=== PATIENT | male | born 1995 | race Caucasian/White ===

== ENCOUNTER 2021-09-20 03:21 | Inpatient (IN) | payer OTHER ==
[~2021-09-20] VITALS: Ht 182.9 cm; Wt 109.0 kg
[2021-09-20] MEDS ORDERED: MORPHINE SULFATE 4 MG/ML SYR/VIAL IV ONE (03:45)
[2021-09-20] MEDS ORDERED: PROCHLORPERAZINE EDISYLATE 5 MG/ML 2ML VIAL IV ONE (03:45)
[2021-09-20] MEDS ORDERED: SODIUM CHLORIDE 0.9% 1,000 ML IVB ONE (03:45)
[2021-09-20] MEDS ORDERED: PANTOPRAZOLE 40 MG/10 ML VIAL INJ IV ONE ×2 (03:45→18:15)
[2021-09-20 04:00] LABS: Basophils # (auto) 0 10 ^3/uL (0-0.2); Basophils % (auto) 0.6 % (0.0-2.0); Eosinophils # (auto) 0.1 10 ^3/uL (0-0.8); Eosinophils % (auto) 0.8 % (0.0-7.0); Hematocrit 40.4 % (41.0-53.0); Hemoglobin 13.3 g/dL (13.5-17.5); Lymphocytes # (auto) 1.5 10 ^3/uL (0.4-5.4); Lymphocytes % (auto) 22.2 % (10.0-50.0); Mean Corpuscular Hemoglobin 28.7 pg (28.0-32.0); Mean Corpuscular Hgb Conc. 32.9 g/dL (32.0-36.0); Mean Corpuscular Volume 87.2 fL (80.0-100.0); Monocytes # (auto) 0.7 10 ^3/uL (0-1.3); Monocytes % (auto) 10.7 % (0.0-12.0); Neutrophils # (auto) 4.4 10 ^3/uL (1.6-8.6); Neutrophils % (auto) 65.7 % (37.0-80.0); Nucleated Red Blood Cells % 0.1 %; Red Blood Cells 4.63 10^6/uL (4.5-5.90); Red Cell Distribution Width 13.7 % (11.8-14.3); White Blood Cell 6.6 10^3/uL (4.4-10.8)
[2021-09-20 04:19] LABS: Albumin 2.8 g/dL (3.4-5.0); Amylase 64 U/L (25-115); Anion Gap 6 (5-15); Blood Alcohol < 3.0 mg/dL (0-5); Blood Urea Nitrogen 13 mg/dL (7-18); Calcium 8.1 mg/dL (8.5-10.1); Carbon Dioxide 26 mmol/L (21-32); Chloride 108 mmol/L (98-107); Glucose 107 mg/dL (74-106); Lipase 520 U/L (73-393); Potassium 3.8 mmol/L (3.5-5.1); Sodium 140 mmol/L (136-145)
[2021-09-20 04:22] LABS: Alanine Aminotransferase 24 U/L (16-61); Alkaline Phosphatase 70 U/L (45-117); Aspartate Aminotransferase 11 U/L (15-37); BUN/Creatinine Ratio 22.4; Bilirubin, Total 0.2 mg/dL (0.2-1.0); GFR African American 221 mL/min; GFR Non-African American 183 mL/min
[2021-09-20 10:24] LABS: Urine WBC None Seen /hpf (0 - 3)
[2021-09-20 11:04] LABS: Alcohol, Urine < 3.0 mg/dL (0-10); Amphetamine Screen, Urine POSITIVE (NEGATIVE); Barbiturate Scree,Urine NEGATIVE (NEGATIVE); Benzodiazephine Screen, Urine NEGATIVE (NEGATIVE); Cannabinoid Screen, Urine POSITIVE (NEGATIVE); Cocaine Screen, Urine NEGATIVE (NEGATIVE); Opiate Scree,Urine POSITIVE (NEGATIVE); Phencyclidine Screen, Urine NEGATIVE (NEGATIVE)
[2021-09-20 11:10] LABS: Urine Bacteria NONE SEEN /hpf (None Seen); Urine Blood Negative /uL (Negative); Urine Mucus MODERATE (None Seen); Urine Specific Gravity 1.015 (1.001-1.035)
[2021-09-20] MEDS ORDERED: MORPHINE SULFATE INJECTION 2 MG/ML SYRG IV PRN ×3 (14:30→18:15)
[2021-09-20] MEDS ORDERED: NITROGLYCERIN 0.4 MG SL TAB SL PRN ×2 (14:30→18:15)
[2021-09-20] MEDS ORDERED: MORPHINE SULFATE INJECTION 2 MG/ML SYRG IV ONE (17:30)
[2021-09-20] MEDS ORDERED: ACETAMINOPHEN 325 MG TAB PO PRN (18:15)
[2021-09-20] MEDS ORDERED: ALUM & MAG HYDROX-SIMETH LIQ(MAALOX) 30 ML PO PRN (18:15)
[2021-09-20] MEDS ORDERED: LORazepam 2MG/ML-1ML VIAL IV PRN (18:15)
[2021-09-20] MEDS ORDERED: LORazepam 0.5 MG TAB PO PRN (18:15)
[2021-09-20] MEDS ORDERED: cefTRIAXone 1GM/50ML D5W 50 ML IV ONE (18:15)
[2021-09-20] MEDS ORDERED: HYDROcodone-ACET 5/325MG TAB PO PRN (18:15)
[2021-09-20] MEDS ORDERED: ONDANSETRON HCL 4 MG/2 ML VIAL IV PRN (18:15)
[2021-09-20] MEDS: SODIUM CHLORIDE 0.9% 1,000 ML IV SCH ×2 (18:44→21:07)
[2021-09-20 19:01] LABS: Cholesterol 127 mg/dL (< 200); HDL Cholesterol 27 mg/dL (40-59); LDL Cholesterol 83 mg/dL (< 100); Triglycerides 82 mg/dL (< 150)
[2021-09-20] MEDS ORDERED: metroNIDAZOLE 500MG/100ML 100 ML IV ONE (20:00)
[2021-09-20 22:30] VITALS: BP 128/83
[2021-09-21 05:00] VITALS: BP 104/65
[2021-09-21 07:05] LABS: Basophils # (auto) 0 10 ^3/uL (0-0.2); Basophils % (auto) 0.2 % (0.0-2.0); Eosinophils # (auto) 0 10 ^3/uL (0-0.8); Eosinophils % (auto) 0.8 % (0.0-7.0); Hematocrit 39.3 % (41.0-53.0); Hemoglobin 13.2 g/dL (13.5-17.5); Lymphocytes % (auto) 16.1 % (10.0-50.0); Mean Corpuscular Hemoglobin 28.9 pg (28.0-32.0); Mean Corpuscular Hgb Conc. 33.5 g/dL (32.0-36.0); Mean Corpuscular Volume 86.2 fL (80.0-100.0); Monocytes # (auto) 0.4 10 ^3/uL (0-1.3); Neutrophils # (auto) 4.8 10 ^3/uL (1.6-8.6); Neutrophils % (auto) 75.9 % (37.0-80.0); Nucleated Red Blood Cells % 0.1 %; Red Blood Cells 4.56 10^6/uL (4.5-5.90); Red Cell Distribution Width 13.8 % (11.8-14.3); White Blood Cell 6.3 10^3/uL (4.4-10.8)
[2021-09-21 07:21] LABS: INR 1.05 (0.9-1.15); Partial Thromboplastin Time 31.2 sec (23.6-33.0)
[2021-09-21 07:24] LABS: Potassium 3.5 mmol/L (3.5-5.1)
[2021-09-21 07:38] LABS: Albumin 2.6 g/dL (3.4-5.0); BUN/Creatinine Ratio 10.3; Bilirubin, Total 0.3 mg/dL (0.2-1.0); Calcium 7.9 mg/dL (8.5-10.1); Phosphorus 3.4 mg/dL (2.5-4.90); Total Protein 6.1 g/dL (6.4-8.2); Uric Acid 5.6 mg/dL (3.5-7.2)
[2021-09-21 09:00] VITALS: BP 114/70
[2021-09-21] MEDS ORDERED: cefTRIAXone 1GM/50ML D5W 50 ML IV SCH (09:00)
[2021-09-21] MEDS ORDERED: ENOXAPARIN SOD 40 MG/0.4 ML SYRINGE SC SCH (10:00)
[2021-09-21] MEDS ORDERED: PANTOPRAZOLE 40 MG/10 ML VIAL INJ IV SCH (10:00)
[2021-09-21 13:00] VITALS: BP 129/76
[2021-09-21] MEDS: metroNIDAZOLE 500MG/100ML 100 ML IV SCH ×2 (14:00→15:12)
[2021-09-21 17:00] VITALS: BP 122/72
[2021-09-21] MEDS: metroNIDAZOLE 500 MG TAB PO SCH (21:22)
[2021-09-21] MEDS: SODIUM CHLORIDE 0.9% 1,000 ML IV SCH (21:24)
[2021-09-21 22:00] VITALS: BP 112/68
[2021-09-22 05:00] VITALS: BP 123/71
[2021-09-22] MEDS: metroNIDAZOLE 500 MG TAB PO SCH (05:32)
[2021-09-22 07:44] LABS: Basophils # (auto) 0 10 ^3/uL (0-0.2); Basophils % (auto) 0.3 % (0.0-2.0); Eosinophils # (auto) 0.1 10 ^3/uL (0-0.8); Eosinophils % (auto) 0.9 % (0.0-7.0); Hematocrit 39.1 % (41.0-53.0); Hemoglobin 13.2 g/dL (13.5-17.5); Lymphocytes # (auto) 1.5 10 ^3/uL (0.4-5.4); Lymphocytes % (auto) 27.1 % (10.0-50.0); Mean Corpuscular Hgb Conc. 33.8 g/dL (32.0-36.0); Mean Corpuscular Volume 85.8 fL (80.0-100.0); Monocytes # (auto) 0.5 10 ^3/uL (0-1.3); Monocytes % (auto) 8.8 % (0.0-12.0); Neutrophils # (auto) 3.6 10 ^3/uL (1.6-8.6); Neutrophils % (auto) 62.9 % (37.0-80.0); Red Blood Cells 4.56 10^6/uL (4.5-5.90); Red Cell Distribution Width 13.5 % (11.8-14.3); White Blood Cell 5.7 10^3/uL (4.4-10.8)
[2021-09-22 07:55] LABS: Albumin 2.6 g/dL (3.4-5.0); Magnesium 3.2 mg/dL (1.6-2.6); Potassium 4.2 mmol/L (3.5-5.1)
[2021-09-22 07:58] LABS: BUN/Creatinine Ratio 12.9; Bilirubin, Total 0.3 mg/dL (0.2-1.0); Total Protein 5.6 g/dL (6.4-8.2)
[2021-09-22 10:32] VITALS: BP 132/70
== END 2021-09-22 10:00 | disposition left against medical advice (07) | DRG 444 ==
LOC: ER 03:21 → OVERFLOW 14:29 → WEST WING 21:55
PROVIDERS: ADMIT Hospitalist; ATTEND Internal Medicine Geriatric Medicine
DX: K81.0 Acute cholecystitis (principal); K85.90 Acute pancreatitis without necrosis or infection, unspecified; E44.0 Moderate protein-calorie malnutrition; E66.01 Morbid (severe) obesity due to excess calories; E88.81 Metabolic syndrome and other insulin resistance; F12.90 Cannabis use, unspecified, uncomplicated; F15.90 Other stimulant use, unspecified, uncomplicated; F19.90 Other psychoactive substance use, unspecified, uncomplicated; F11.90 Opioid use, unspecified, uncomplicated; F17.200 Nicotine dependence, unspecified, uncomplicated; K29.20 Alcoholic gastritis without bleeding; Z80.9 Family history of malignant neoplasm, unspecified; Z83.3 Family history of diabetes mellitus; Z20.822 Contact with and (suspected) exposure to COVID-19; Z68.31 Body mass index [BMI] 31.0-31.9, adult; Z53.29 Procedure and treatment not carried out because of patient's decision for other reasons
CPT/HCPCS: 36415; 74176; 76705; 78226; 80053; 80061; 80307; 80320; 81001; 82150; 82306; 83036; 83690; 83735; 83880; 84100; 84484; 84550; 85025; 85379; 85610; 85730; 87040; 87086; 87426; 96361; 96374; 96375; C9113; G0378; J0696; J3490